=== PATIENT | female | born 1955 | race Caucasian/White ===

== ENCOUNTER 2022-08-05 11:38 | Observation (INO) | payer MEDICARE ==
[~2022-08-05] VITALS: Ht 160 cm; Wt 90.0 kg
[2022-08-05] MEDS ORDERED: NAPR220 PO (12:24)
--- NOTE | 2022-08-05 13:30 | NUR ---
DIRECT ADMIT / GONE TO SUPERVISOR TWISTING DEPARTMENT PT DIRECT ADMIT TO PCU-06 @ APPROX 1130 FROM [facility]. PT BROUGHT BY ROGERS, ACCOMPANIED BY 2 PARAMEDICS. PARAMEDICS REPORT PT IN 3RD DEGREE HB T/O TRAVEL FROM [facility] TO [facility]. PT A&O X4. PT ABLE TO STAND & TRANSFER TO PCU BED W/ OUT LIGHTHEADEDNESS/DIZZINESS. BP STABLE. HR 30s. EKG DONE SHOWING SR W/ 1ST DEGREE. MONITOR SHOWING INTERMITTENT 3RD DEGREE HB VS 2:1 KE[place] W/ [address]IGHW[address] WORKER REPORTING LONGEST PAUSE 3.17 SECONDS. PT DENYING SYMPTOMS MINUS ONE BRIEF MOMENT PT REPORTING "I HAVE JUST A LITTLE BIT OF A HEADACHE. ONLY A LITTLE LIGHTHEADED." PT BP STABLE. SYMPTOMS SUBSIDED. ZOLL, ATROPINE & EPINEPHRINE @ BEDSIDE. PT TAKEN TO SUPERVISOR TWISTING DEPARTMENT FOR PACER INSERTION @ APPROX 1300.
--- NOTE | 2022-08-05 17:30 | NUR ---
PACER PLACEMENT / END OF SHIFT NOTE PT BROUGHT BACK TO PCU @ APPROX 1615 AFTER DUAL CHAMBER PACER PLACEMENT. PT A&O X4. PT C/O NAUSEA. MD ALEXANDRE AT BEDSIDE W/ VERBAL ORDER FOR PRN IV ZOFRAN. PT VSS. SPO2 > 92% ON RA. MONITOR SHOWING 100% PACED, HR 60s. LCW PACER INSERTION SITE WNL. SLING IN PLACE TO L ARM. ICE PACK APPLIED TO SITE. PT CALLED & UPDATED BY THIS RN PER PT REQUEST.
--- NOTE | 2022-08-06 05:58 | NUR ---
SHIFT SUMMARY ASSUMED CARE OF PT AT 1900. PT IS A/OX4. HEART SOUNDS REGULAR. LUNG SOUNDS CLEAR. PT PACEMAKER ON L CHEST IS TENDER THIS AM WITH SMALL AMOUNT OF DRAINAGE ON BANDAGE, SAME BEFORE SHIFT. MEDICATED FOR PAIN. PT IS 1P SBA TO BATHROOM. NO COMPLAINTS DURING THE NIGHT.
[2022-08-06] MEDS ORDERED: CEPH500 PO (10:18)
[2022-08-06] MEDS ORDERED: AMLO5 PO (10:18)
--- NOTE | 2022-08-06 13:06 | NUR ---
DISCHARGE HOME PT A&O X4. VSS. SPO2 > 92% ON RA. MONITOR SHOWING COMPLETE PACING, HR 60s. DISCHARGE INSTRUCTIONS REVIEWED W/ PT. L ARM IN SLING. PIVs REMOVED. PT TAKEN OUT IN WHEELCHAIR @ APPROX 1300, ACCOMPANIED BY SPOUSE.
== END 2022-08-06 13:00 | disposition home or self-care (01) ==
LOC: PCU 11:38
PROVIDERS: ADMIT Internal Medicine
DX: I44.1 Atrioventricular block, second degree (principal); I10 Essential (primary) hypertension; E55.9 Vitamin D deficiency, unspecified
CPT/HCPCS: 33208; 71045; 71046; 76937; 93005; 93010; 99152; 99153; A9270; C1781; C1785; C1894; C1898; G0378; J0690; J1644; J2250; J2405; J3010; J7030; J7040